=== PATIENT | female | born 1955 | race Two or more races ===

== ENCOUNTER 2017-06-22 23:20 | Inpatient (IN) | payer MEDICARE, OTHER ==
[~2017-06-22] VITALS: Ht 152.4 cm; Wt 68.0 kg
[~2017-06-22 23:20] MED LIST: ASPI-605 PO; CLON0.5T4 PO; GLIM1TAB2 PO; INSU100V7 SQ; LEVO25TA7 GT; LOSA100T15 PO; METF500T4 PO; METO50TA3 PO; OMEP40CA37 PO; PIOG30TA2 PO; ROSU5TAB PO; SITA100T PO
[2017-06-22] MEDS ORDERED: ONDANSETRON HCL/PF 4 MG/2 ML VIAL ONE (23:24)
[2017-06-22] MEDS ORDERED: DIAZEPAM 5 MG/ML 2 ML DISP.SYRIN IV ONE (23:30)
[2017-06-22] MEDS ORDERED: ONDANSETRON HCL/PF 4 MG/2 ML VIAL IVP ONE (23:30)
[2017-06-22] MEDS ORDERED: IV NS 0.9% 1,000 ML BAG IV ONE (23:30)
--- NOTE | 2017-06-22 23:30 | NUR ---
started a saline lock on the rfa g20, blood drawn and sent to lab.
[2017-06-22] MEDS ORDERED: DIAZEPAM 5 MG/ML 2 ML DISP.SYRIN ONE (23:31)
--- NOTE | 2017-06-22 23:35 | NUR ---
medicated patient as ordered by Dr Carson.
[2017-06-22 23:44] LABS: BASOPHILS # (AUTO) 0.1 /CMM (0.0-0.2); BASOPHILS % (AUTO) 0.5 % (0.0-2.0); EOSINOPHILS # (AUTO) 0.3 /CMM (0.0-0.7); EOSINOPHILS % (AUTO) 2.3 % (0.0-6.0); HEMATOCRIT 35 % (33-45); HEMOGLOBIN 11.9 g/dL (11.5-14.8); LYMPHOCYTES # (AUTO) 8.2 /CMM (0.8-4.8); LYMPHOCYTES % (AUTO) 56.1 % (20.0-44.0); MEAN CORPUSCULAR HEMOGLOBIN 31 PG (26.0-33.0); MEAN CORPUSCULAR HGB CONC 34 g/dl (31.0-36.0); MEAN CORPUSCULAR VOLUME 91 fL (82-100); MONOCYTES # (AUTO) 0.9 /CMM (0.1-1.30); MONOCYTES % (AUTO) 5.9 % (2.0-12.0); NEUTROPHILS # (AUTO) 5.2 /CMM (1.8-8.9); NEUTROPHILS % (AUTO) 35.2 % (43.0-81.0); PLATELET COUNT (AUTO) 501 /CMM (150-450); RDW COEFFICIENT OF VARIATION 14.1 (11.5-15.0); RED BLOOD CELL COUNT(AUTO) 3.84 MIL/uL (4.0-5.2); WHITE BLOOD COUNT (AUTO) 14.6 K/uL (4.3-11.0)
[2017-06-22 23:55] LABS: CALCIUM, SERUM 9.1 mg/dL (8.5-10.1); CREATININE 0.9 mg/dL (0.6-1.3); POTASSIUM 3.3 mmol/L (3.5-5.1)
--- NOTE | 2017-06-23 | NUR ---
TO BED 7 A 62 YO FEMALE PT BIBA#39 PT C/O DIZZINESS WITH NAUSEA AND VOMITING X 30 MINUTES. VSS. NAD NOTED. AFEBRILE. BREATHING EVEN AND UNLABORED. ONGOING CARDIAC AND VS MONITORING. GOWNED. SAFETY AND COMFORT MEASURES RENDERED.
[2017-06-23 00:02] LABS: ALBUMIN 3.9 g/dL (3.4-5.0); BILIRUBIN,TOTAL 0.2 mg/dL (0.2-1.0); TOTAL PROTEIN, SERUM 7.3 g/dL (6.4-8.2)
--- NOTE | 2017-06-23 00:20 | NUR ---
Report given to Patrizia BIRCH for tele admission and francisco j.
[2017-06-23] MEDS ORDERED: ONDANSETRON HCL/PF 4 MG/2 ML VIAL ONE (00:37)
--- NOTE | 2017-06-23 00:37 | NUR ---
xr at bedside.
[2017-06-23] MEDS ORDERED: ONDANSETRON HCL/PF 4 MG/2 ML VIAL IV ONE (01:00)
[2017-06-23 01:01] LABS: APPEARANCE,URINE CLEAR (CLEAR); BILIRUBIN,URINE NEGATIVE (NEGATIVE); BLOOD, URINE NEGATIVE Ery/uL (NEGATIVE); COLOR,URINE YELLOW (YELLOW); KETONES,URINE NEGATIVE (NEGATIVE); LEUKOCYTE ESTERASE ,URINE NEGATIVE (NEGATIVE); NITRITE, URINE NEGATIVE (NEGATIVE); PH,URINE 5.5 (5.0-8.0); PROTEIN,URINE NEGATIVE (NEGATIVE); UGLUCOSE NEGATIVE (NEGATIVE); UROBILINOGEN,URINE 0.2 EU/dL (0.2)
[2017-06-23] MEDS ORDERED: IV NS 0.9% 1,000 ML IV PRN ×2 (01:58→10:47)
[2017-06-23] MEDS ORDERED: ONDANSETRON HCL/PF 4 MG/2 ML VIAL IVP PRN (02:00)
[2017-06-23] MEDS ORDERED: clonazePAM 0.5 MG TABLET PO PRN (02:00)
[2017-06-23] MEDS ORDERED: ZOLPIDEM TARTRATE 5 MG TABLET PO PRN (02:00)
[2017-06-23] MEDS ORDERED: MAGNESIUM HYDROXIDE 30 ML UDC PO PRN (02:00)
[2017-06-23] MEDS ORDERED: MAG HYDROX/AL HYDROX/SIMETH 30 ML UDC PO PRN (02:00)
[2017-06-23] MEDS ORDERED: MECLIZINE HCL 12.5 MG TABLET PO PRN (02:00)
[2017-06-23] MEDS ORDERED: HYDROCODONE/APAP 5/325MG 1 EACH TABLET PO PRN (02:00)
[2017-06-23] MEDS ORDERED: Z GUARD REMEDY 2 OZ OINT TP PRN (02:00)
--- NOTE | 2017-06-23 02:27 | NUR ---
transferred patient to tele bed via als protocol, no incident noted.
--- NOTE | 2017-06-23 02:30 | NUR ---
TELE/RN NOTES PT ARRIVED TO UNIT FROM ER VIA GURCHRIS. ON RA, BREATHING EVEN AND UNLABORED. A/OX4. AMBULATORY WITH ASSISTANCE. DENIES SOB, NOTES HEADACHE 3/10 AND REQUESTING TYLENOL. DENIES NAUSEA/VOMITING/DIZZINESS AT THIS TIME. IV TO RFA PATENT AND INTACT. ORIENTED PT TO ROOM AND CALL LIGHT. SIDE RAILS UPX2. WARM BLANKET PROVIDED. WILL CONTINUE TO MONITOR
--- NOTE | 2017-06-23 02:40 | NUR ---
TELE/RN NOTES PT PLACED ON TELE MONITOR, SHOWING SINUS RHYTHM, HEART RATE=74
[2017-06-23 02:45] VITALS: BP 123/72
[2017-06-23] MEDS ORDERED: ACETAMINOPHEN 325 MG TABLET ONE (02:55)
[2017-06-23] MEDS: ACETAMINOPHEN 325 MG TABLET PO PRN ×2 (03:00→15:20)
--- NOTE | 2017-06-23 06:20 | NUR ---
TELE/RN NOTES NOTIFIED DR. HODGE OF PT'S POTASSIUM OF 3.3 ORDERS TO GIVE KDUR 40MEQ PO ONCE. ORDERS NOTED AND CARRIED OUT.
[2017-06-23] MEDS ORDERED: POTASSIUM CHLORIDE 20 MEQ TAB.PRT.SR PO ONE ×2 (06:25→06:30)
--- NOTE | 2017-06-23 07:13 | NUR ---
TELE/RN NOTES PT AWAKE, RESTING COMFORTABLY IN BED. A/OX4. ON ROOM AIR, BREATHING EVEN AND UNLABORED. DENIES SOB OR PAIN AT THIS TIME. NO APPARENT DISTRESS NOTED. ON TELE MONITOR SHOWING SINUS RHYTHM AT 61. IV TO RFA PATENT AND INTACT. POTASSIUM REPLACED. NO CHANGES OVERNIGHT. MADE PT COMFORTABLE THROUGHOUT SHIFT. ALL NEEDS MET AND ATTENDED. WILL ENDORSE TO AM SHIFT ANNAMARIA.
[2017-06-23] MEDS ORDERED: PANTOPRAZOLE 40 MG TABLET.DR PO SCH (07:30)
--- NOTE | 2017-06-23 07:55 | NUR ---
PROCUREMENT FORESTER NOTES RECEIVED PT. PT IS STABLE AND RESTING IN BED. A/OX4. NO S/S OF SOB OR DISTRESS. PT DENIES PRESENCE OF PAIN AT THIS TIME. IV ACCESS IS LOCATED ON RIGHT FOREARM 20G, RUNNING NS AT 75 ML/HR. SAFETY MEASURES IN PLACE, CALL LIGHT WITHIN REACH. WILL CONTINUE TO MONITOR.
[2017-06-23 08:00] VITALS: BP 112/56
[2017-06-23] MEDS ORDERED: LOSARTAN POTASSIUM 50 MG TABLET PO SCH (09:00)
[2017-06-23] MEDS ORDERED: GLIMEPIRIDE 1 MG TABLET PO SCH (09:00)
[2017-06-23] MEDS ORDERED: ASPIRIN EC 81 MG TABLET.DR PO SCH (09:00)
[2017-06-23] MEDS ORDERED: LEVOTHYROXINE SODIUM 25 MCG TABLET GT SCH (09:00)
[2017-06-23] MEDS ORDERED: METOPROLOL TARTRATE 50 MG TABLET PO SCH (09:00)
[2017-06-23] MEDS ORDERED: Medication Not On Formulary EA (Omeprazole 40 MG) PO SCH (09:00)
[2017-06-23] MEDS ORDERED: METFORMIN 500 MG TABLET PO SCH (09:00)
[2017-06-23 11:22] VITALS: BP_SYST 129; BP_SYST 132; BP_DIAS 68; BP_DIAS 76; BP_DIAS 81
--- NOTE | 2017-06-23 14:18 | NUR ---
RN NOTES AM BP MEDS HELD DUE TO LOW BP. 0625 KDUR GIVEN BY NIGHTSHIFT. TELE D/C PER MD ORDER.
[2017-06-23] MEDS ORDERED: MECL-102 PO (14:39)
--- NOTE | 2017-06-23 17:49 | NUR ---
DISCHARGE NOTE PT IS STABLE. VSS, NO S/S OF SOB OR DISTRESS. NO C/O PAIN. PT IS AMBULATING WELL, WITH NO ASSISTANCE. DENIES ANY DIZZYNESS OR VERTIGO. DISCHARGE EDUCATION PROVIDED AND DISCUSSED WITH PATIENT, PT VERBALIZES UNDERSTANDING. DISCHARGE PAPERWORK AND BELONGINGS LIST SIGNED AND COPIED. IV ACCESS REMOVED. PT GIVEN PRESCRIPTION PER MD ORDER. PT IS LEAVING ATTENDED BY .
[2017-06-23] MEDS ORDERED: ATORVASTATIN 10 MG TABLET PO SCH (22:00)
[2017-06-23] MEDS ORDERED: Medication Not On Formulary EA (Rosuvastatin Calcium (Crestor) 5 MG) PO SCH (22:00)
== END 2017-06-23 17:45 | disposition home or self-care (01) | DRG 149 ==
LOC: ER 23:21 → TELE 06-23 02:06 → MED 06-23 11:47
PROVIDERS: ADMIT Internal Medicine; ATTEND Internal Medicine
DX: H81.399 Other peripheral vertigo, unspecified ear (principal); I10 Essential (primary) hypertension; E11.9 Type 2 diabetes mellitus without complications; E78.5 Hyperlipidemia, unspecified; D72.828 Other elevated white blood cell count; E86.0 Dehydration; E87.6 Hypokalemia; F17.210 Nicotine dependence, cigarettes, uncomplicated; Z83.3 Family history of diabetes mellitus; Z86.73 Personal history of transient ischemic attack (TIA), and cerebral infarction without residual deficits; R11.2 Nausea with vomiting, unspecified
CPT/HCPCS: 36415; 70450-TC; 70551-TC; 71010-TC; 80048-TC; 80076-TC; 81000-TC; 82962-TC; 83690-TC; 85025-TC; 87081-TC; 93307-TC; 93880-TC; A4606; J2405; J3360; J7030; Z7610